=== PATIENT | female | born 1950 | race Caucasian/White ===

== ENCOUNTER 2016-03-06 16:14 | Emergency (ER) | payer OTHER, MEDICARE ==
[2016-03-06 16:38] VITALS: BP 218/77; PULSE 89; RESP 20; TEMP 97.3; O2SAT 94
[2016-03-06] MEDS ORDERED: AZITHROMYCIN 250 MG TAB PO ONE (18:51)
[2016-03-06] MEDS ORDERED: ALBUTEROL INH PREPACK MDI TAKEHOME ONE (18:52)
--- NOTE | 2016-03-06 18:53 | UCPHY ---
H & P Time Seen by Provider: 03/06/16 18:44 Patient Type: Established HPI/ROS: Patient complains of cough for 1 week she describes this cough is dry in nature. She feels that the symptoms are staying steady but not improving. She reports having no other associated symptoms except for mild wheezing. She feels that her symptoms might improve with she explains that she is visiting from [place] and that she also developed bronchitis and previous visit and improved with an albuterol inhaler. ROS: No high fevers or chills. No other constitutional symptoms. HEENT: No significant nasal congestion, sore throat or other complaints. Pulmonary: No pleuritic pain or respiratory distress. 7 point ROS is otherwise negative. Past Medical/Surgical History: Melanoma to her arm. She has had negative chest x-ray another workup for any metastatic melanoma for the past 20 years since the initial lesion was removed from her arm. None [id number] diabetes Hypertension Smoking Status: Never smoked Physical Exam: Physical Exam Vital signs are normal. General: No acute distress HEENT: No significant nasal congestion. No sinus tenderness to percussion. Oropharynx is clear with no dysphonia. Eyes: Pupils equal and react to light. Extraocular motions are intact. Lungs: Clear to auscultation except for faint expiratory wheeze when she coughs. No rales or rhonchi. No respiratory distress. Cardiac: Regular rate and rhythm with no murmur gallop or rub Skin: No rash or pallor. Neuro: Alert and oriented x3 with no sensorimotor deficits. Initial differential diagnosis: Viral bronchitis versus URI with cough Constitutional: Initial Vital Signs Temperature (C) 36.3 C 03/06/16 16:34 Heart Rate 89 03/06/16 16:34 Respiratory Rate 20 03/06/16 16:34 Blood Pressure 218/77 H 03/06/16 16:34 O2 Sat (%) 94 03/06/16 16:34 O2 Delivery Mode Room Air Allergies/Adverse Reactions: bacitracin [From Neosporin ([id number])] Allergy (Verified 03/06/16 16:32) bacitracin zinc [From Neosporin ([id number])] Allergy (Verified 03/06/16 16: 32) neomycin sulfate [From Neosporin ([id number])] Allergy (Verified 03/06/16 16: 32) polymyxin B [From Neosporin ([id number])] Allergy (Verified 03/06/16 16:32) Home Medications: Medication Instructions Recorded Aspirin 81mg (OTC) 05/20/13 CO Q-10 05/20/13 Lipitor 20 mg (RX) 05/20/13 Metformin HCl 05/20/13 Norvasc 05/20/13 Toprol Xl 100 mg (RX) 05/20/13 Azithromycin [Zithromax] 250 mg PO DAILY #4 tab 03/06/16 Hyzaar 100-12.5 Tablet 03/06/16 MDM/Departure - MDM Medications Given: Discontinued Medications Albuterol Sulfate (Proventil Inh Prepack) 1 mdi TAKEHOME EDNOW ONE Stop: 03/06/16 18:53 Last Admin: 03/06/16 19:16 Dose: 1 mdi Azithromycin (Zithromax) 500 mg PO EDNOW ONE PRN Reason: Protocol Stop: 03/06/16 18:52 Last Admin: 03/06/16 19:17 Dose: 500 mg ED Course/Re-evaluation: Discussion: This patient appears well without clinical evidence of lower respiratory infection or other complicating factors. - Depart Disposition: Home, Routine, Self-Care Clinical Impression: Acute bronchitis Qualifiers: Bronchitis organism: unspecified organism Qualifier Code: (J20.9) Acute bronchitis, unspecified Condition: Good Instructions: Acute Bronchitis (ED) Additional Instructions: Diagnosis: Acute bronchitis Plan: Humidifier Zithromax antibiotic Albuterol inhaler with spacer for cough, wheeze or shortness of breath Return for any significant worsening despite the treatment plan. Prescriptions: Azithromycin [Zithromax] 250 mg PO DAILY #4 tab Referrals: OUT OF STATE,. [Primary Care Provider] - As per Instructions - PQRS PQRS Measurement: 134: Depression screening and followup, PRIME MD-PHQ2 (12 years and older) Over the last 2 weeks, how often have you been bothered by any of the following problems? 1. Feeling down, depressed, or hopeless? 2. Little interest or pleasure in doing things? Patient answered no to both 1 and 2 130: Documentation of medications. Reviewed all patient medications, doses, route and frequency. 226: Do you smoke? [No.] 47: 65 and older: Advanced care planning. Patient designates surrogate decision maker as [Patient has advanced directive.] 51: 18 years old and older with diagnosis of COPD, spirometry performance. NA 52: 18 years old and older with COPD and symptoms of COPD or FEV1<60% predicted prescribed a B Agonist. NA
== END 2016-03-06 19:17 | disposition home or self-care (01) ==
LOC: CED 16:14
DX: J20.9 Acute bronchitis, unspecified (principal); C43.60 Malignant melanoma of unspecified upper limb, including shoulder; E11.9 Type 2 diabetes mellitus without complications; I10 Essential (primary) hypertension
CPT/HCPCS: 99214-PO; G0463-PO